=== PATIENT | male | born 1965 | race Caucasian/White ===

== ENCOUNTER 2018-06-20 06:38 | Day surgery (SDC) | payer BC ==
[2018-06-20 07:45] VITALS: BMI 35.5
[2018-06-20] MEDS ORDERED: MIDAZOLAM HCL 2 MG/2 ML SINGLE DOSE VIAL ONE (07:58)
[2018-06-20 08:35] VITALS: TEMP 98
[2018-06-20 10:44] VITALS: BP 125/68; PULSE 77
== END 2018-06-20 09:35 | disposition home or self-care (01) ==
LOC: JASU-ENDO 06:38
PROVIDERS: ATTEND Internal Medicine Gastroenterology
PROC: 0DJD8ZZ Inspection of Lower Intestinal Tract, Via Natural or Artificial Opening Endoscopic (ICD-10-PCS; principal; 2018-06-20 08:00)
DX: Z12.11 Encounter for screening for malignant neoplasm of colon (principal); K57.30 Diverticulosis of large intestine without perforation or abscess without bleeding; K64.8 Other hemorrhoids; Z98.0 Intestinal bypass and anastomosis status

== ENCOUNTER 2019-09-20 10:17 | Day surgery (SDC) | payer BC ==
[2019-09-17 15:40] VITALS: BMI 36.1
[2019-09-20 12:20] VITALS: TEMP 97.7
[2019-09-20 13:27] VITALS: BP 127/77; PULSE 70
[2019-09-20 14:13] LABS: BASO % 0.3 % (0-2.0); EOS % 1.5 % (0-4.5); HEMATOCRIT 46.4 % (35.4-49); HEMOGLOBIN 15.5 GM/dL (11.7-16.9); LYMPH % 37.9 % (8-40); MCH 30.2 pg (25.7-33.7); MCHC 33.4 g/dl (32.0-35.9); MEAN CELL VOLUME 90.3 fl (80-96); MEAN PLT VOLUME 9.2 fl (7.5-11.1); MONO % 6.5 % (3.8-10.2); NEUT % 53.8 % (42.8-82.8); PLATELET COUNT 220 K/MM3 (134-434); RBC 5.14 M/mm3 (4.00-5.60); RDW 13.2 % (11.9-15.9); WHITE BLOOD COUNT 8.9 K/mm3 (4.0-10.0)
[2019-09-20 14:49] LABS: ALBUMIN 3.6 g/dl (3.4-5.0); ALK PHOS 44 U/L (45-117); ANION GAP 8 MMOL/L (8-16); BILIRUBIN,TOTAL 0.6 mg/dL (0.2-1); BLOOD UREA NITROGEN 10.7 mg/dL (7-18); CALCIUM 9.1 mg/dL (8.5-10.1); CHLORIDE 108 mmol/L (98-107); CO2 25 mmol/L (21-32); CREATININE 1.1 mg/dL (0.55-1.3); GLUCOSE,RANDOM 83 mg/dL (74-106); POTASSIUM 4.2 mmol/L (3.5-5.1); SGOT/AST 26 U/L (15-37); SGPT/ALT 57 U/L (13-61); SODIUM 140 mmol/L (136-145); TOT PROT 6.9 g/dl (6.4-8.2)
[2019-09-20 15:39] LABS: CHOLESTEROL 175 mg/dL (50-200); HDL CHOLESTEROL 27 mg/dL (40-60); LDL CHOLESTEROL (ONLY SJRH) 93 mg/dL (5-100); TRIGLYCERIDES 301 mg/dL (0-150)
[2019-09-21 10:07] LABS: TRANSGLUTAMINASE IGA < 2 U/mL (0-3); TRANSGLUTAMINASE IGG 6 U/mL (0-5)
--- NOTE | 2019-09-23 17:30 | PATH ---
Surgical Pathology Report Patient Name: SHIVANI ASHER [facility]. Rec. #: [id number] /Age/Gender: 1965 (Age: 53) / M Account: [id number] Location: [facility]-ENDOSCOPY Taken: 09/20/2019 Received: 09/20/2019 Reported: 09/23/2019 Physicians: Tammie Varela M.D. Specimen(s) Received A: SECOND PORTION OF DUODENUM AND BULB B: ANTRUM GASTRITIS C: DISTAL ESOPHAGUS, GE JUNCTION D: MID ESOPHAGUS Clinical History Esophageal dysphagia Postoperative diagnosis: Hiatal hernia, GERD, gastritis, duodenal bulb ulcer Final Diagnosis A. SECOND PORTION OF DUODENUM AND BULB, BIOPSY: DUODENAL MUCOSA WITH NONSPECIFIC CHRONIC DUODENITIS. B. ANTRUM GASTRITIS, BIOPSY: GASTRIC MUCOSA WITH CHRONIC GASTRITIS. IMMUNOSTAIN FOR H. PYLORI IS NEGATIVE. NEGATIVE FOR INTESTINAL METAPLASIA. C. DISTAL ESOPHAGUS, GE JUNCTION, BIOPSY: SQUAMOUS EPITHELIUM WITH CHANGES CONSISTENT WITH REFLUX ESOPHAGITIS. D. MID ESOPHAGUS, BIOPSY: ESOPHAGEAL MUCOSA WITH NO SIGNIFICANT PATHOLOGIC CHANGE. NO HISTOLOGIC EVIDENCE OF EOSINOPHILIC ESOPHAGITIS. Electronically Signed Katia Olson M.D. Gross Description A. Received in formalin, labeled "biopsy second portion of duodenum" are 3 bryant, irregular portions of soft tissue ranging from 0.3-0.5 cm. in greatest dimension. The specimens are submitted in toto in one cassette. B. Received in formalin, labeled "biopsy antrum gastritis" are 5 bryant, irregular portions of soft tissue ranging from 0.1-0.3 cm. in greatest dimension. The specimens are submitted in toto in one cassette. C. Received in formalin, labeled "biopsy distal esophagus" are 3 bryant, irregular portions of soft tissue ranging from 0.1-0.4 cm. in greatest dimension. The specimens are submitted in toto in one cassette. D. Received in formalin, labeled "biopsy midesophagus" are 2 bryant, irregular portions of soft tissue averaging 0.3 cm. in greatest dimension. The specimens are submitted in toto in one cassette. DL/09/20/2019 saudi/09/20/2019
== END 2019-09-20 13:46 | disposition home or self-care (01) ==
LOC: JASU-ENDO 10:17
PROVIDERS: ATTEND Internal Medicine Gastroenterology
PROC: 0DB68ZX Excision of Stomach, Via Natural or Artificial Opening Endoscopic, Diagnostic (ICD-10-PCS; 2019-09-20)
PROC: 0DB28ZX Excision of Middle Esophagus, Via Natural or Artificial Opening Endoscopic, Diagnostic (ICD-10-PCS; 2019-09-20)
PROC: 0DB38ZX Excision of Lower Esophagus, Via Natural or Artificial Opening Endoscopic, Diagnostic (ICD-10-PCS; 2019-09-20)
PROC: 0DB48ZX Excision of Esophagogastric Junction, Via Natural or Artificial Opening Endoscopic, Diagnostic (ICD-10-PCS; 2019-09-20)
PROC: 0DB98ZX Excision of Duodenum, Via Natural or Artificial Opening Endoscopic, Diagnostic (ICD-10-PCS; principal; 2019-09-20 11:00)
DX: K22.10 Ulcer of esophagus without bleeding (principal); K21.0 Gastro-esophageal reflux disease with esophagitis; K29.70 Gastritis, unspecified, without bleeding; K26.9 Duodenal ulcer, unspecified as acute or chronic, without hemorrhage or perforation; K29.80 Duodenitis without bleeding
CPT/HCPCS: 36415; 80053; 80061; 82941; 83036; 83516; 83721; 85025; 86140; 88305-TC; 88342-TC

== ENCOUNTER 2023-06-15 04:55 | Day surgery (SDC) | payer BC ==
[2023-06-14 10:22] VITALS: BMI 33.0
[2023-06-15 08:34] VITALS: TEMP 97.5
[2023-06-15 09:01] VITALS: BP 104/70; PULSE 71; RESP 13
== END 2023-06-15 09:35 | disposition home or self-care (01) ==
LOC: JASU-ENDO 04:55
PROVIDERS: ATTEND Internal Medicine Gastroenterology
PROC: 0DB98ZX Excision of Duodenum, Via Natural or Artificial Opening Endoscopic, Diagnostic (ICD-10-PCS; 2023-06-15)
PROC: 0DB78ZX Excision of Stomach, Pylorus, Via Natural or Artificial Opening Endoscopic, Diagnostic (ICD-10-PCS; 2023-06-15)
PROC: 0DB68ZX Excision of Stomach, Via Natural or Artificial Opening Endoscopic, Diagnostic (ICD-10-PCS; 2023-06-15)
PROC: 0DB48ZX Excision of Esophagogastric Junction, Via Natural or Artificial Opening Endoscopic, Diagnostic (ICD-10-PCS; 2023-06-15)
PROC: 0DJD8ZZ Inspection of Lower Intestinal Tract, Via Natural or Artificial Opening Endoscopic (ICD-10-PCS; principal; 2023-06-15 08:00)
DX: Z12.11 Encounter for screening for malignant neoplasm of colon (principal); K57.30 Diverticulosis of large intestine without perforation or abscess without bleeding; Z98.0 Intestinal bypass and anastomosis status; Z86.010 Personal history of colon polyps; Z83.711 Family history of hyperplastic colon polyps; K29.00 Acute gastritis without bleeding; K21.00 Gastro-esophageal reflux disease with esophagitis, without bleeding
CPT/HCPCS: 43239; G0105; 88305-TC; 88342-TC